=== PATIENT | female | born 2005 | race Caucasian/White ===

== ENCOUNTER 2024-10-18 02:58 | Emergency (ER) | payer OTHER, SELFPAY ==
[2024-10-18 03:00] VITALS: BP 138/85; PULSE 104; RESP 16; TEMP 36.7; O2SAT 100; BMI 23.8
--- NOTE | 2024-10-18 04:01 | EDS_ITS ---
HPI History of Present Illness Chief Complaint: Nosebleed Informant: patient and friend Narrative Narrative: Patient is a 19-year-old female with past medical history of ADHD. She reports that this evening she developed sudden onset of bleeding out of the left no stril. She reports that there was no trauma prior to the bleeding beginning. She states she has had mild congestion but denies any significant coughing episodes sneezing episodes or blowing her nose relentlessly. He denies any history of bleeding disorder or blood thinner use. She reports that she was trying at the bleeding is stopped over the past hour but was unsuccessful and therefore comes in for evaluation [facility] Medical History no medical history Home Medications ?Medication ?Instructions ?Recorded ?Last Taken ?Type dextroamphetamine-amphetamine 20 20 mg PO DAILY 10/18/24 Unknown History mg tablet (Adderall) lamotrigine 200 mg tablet 200 mg PO DAILY 10/18/24 Unknown History (Lamictal) Allergy/AdvReac Type Severity Reaction Status Date / Time No Known Allergies Allergy Verified 10/18/24 03:00 Family History unable to obtain Surgical History no surgical history Social History Smoking Status: Never smoker ROS ROS ED Constitutional Constitutional ED: Denies chills or fever(s) Eyes Eyes: Denies change in vision ENT ENT ED: Reports rhinorrhea and other Details: Positive nosebleed Cardiovascular Cardiovascular: Denies chest pain Respiratory/Chest Respiratory/Chest: Denies cough or dyspnea Gastrointestinal Gastrointestinal: Denies abdominal pain, diarrhea, nausea or vomiting Genitourinary Genitourinary ED: Denies dysuria Musculoskeletal Musculoskeletal: Denies myalgias Integumentary Denies rash Neurologic Neurologic: Denies headache(s) Hematologic/Lymphatic Hematologic/Lymphatic: Denies easy bleeding or easy bruising EXAM Physical Exam Const Vital Signs: 10/18/24 03:00 10/18/24 04:06 Temperature 98.0 F 98.0 F Temperature Source Oral Pulse Rate 104 H 95 Respiratory Rate 16 18 Blood Pressure 138/85 H 137/91 H Blood Pressure Mean 102 106 Pulse Ox 100 98 Oxygen Delivery Method Room Air Positive well nourished and well developed General Appearance ED: well developed; Negative for pallor HEENT HEENT Narrative: There is a large amount of dried blood with small amount of dark red nonpulsatile blood in the left nostril consistent with anterior epistaxis. There is trace overflow bleeding into the right nostril and dried blood in the posterior pharynx without active bleeding in the throat noted. No septal perforation Eyes PERRL and EOMs intact bilaterally Neck supple Resp normal respiratory effort and clear to auscultation bilaterally Cardio regular rate and regular rhythm Extremity normal to inspection Neuro oriented x3, CN's II-XII intact bilaterally and no sensory deficits noted Sensorium / Orientation: alert Motor Exam: strength 5/5 throughout Psych mental status grossly normal Skin no rashes or lesions noted General Skin Exam: Negative for jaundice or pallor MDM MDM MDM Narrative Medical decision making narrative: Patient arrived to the ER with stable vitals and reported sudden onset of bleeding of the left nostril. There have been no report or signs of trauma so my concern that this developed secondary to a nasal bone fracture more low and I felt no need for a CT scan. On exam there is no signs of septal hematoma and the blood is slow intermittent use going against a posterior nosebleed from the sphenopalatine artery so there is no need for emergent ENT referral. The patient denies any history of bleeding disorder or blood thinner use and is bleeding is only been going on for the last hour I have low concern for anemia or thrombocytopenia and do not feel the need for laboratory studies. The patient had a 5.5 cm rapid Rhino nasal packing placed in the left nostril. This was inflated to 4 cm of air. The patient was watched for 30 minutes and there was no bleeding out of the left nostril no overflow bleeding into the right and no bleeding in the posterior pharynx indicating that the nasal packing had performed cauterization of the wound. Therefore with stabilization of the anterior nosebleed there is no need for further workup and patient is otherwise safe for discharge History & Record Review Discussion w/independent historian: Patient and Friend Discharge Plan Triage Chief Complaint: Nosebleed ED Provider: Donaldo Tony Dx/Rx/DC Orders Clinical Impression: Anterior epistaxis, ADHD Instructions: ED Epistaxis (Adult), ED Removable Nasal Packing Anterior Prescriptions: No Action lamotrigine [Lamictal] 200 mg tablet 200 mg PO DAILY dextroamphetamine-amphetamine [Adderall] 20 mg tablet 20 mg PO DAILY Primary Care Provider: Care Physician,No Primary Referrals: Woody Sarmiento MD [Med Staff - Courtesy Staff] - Care Physician,No Primary [Primary Care Provider] - Activity Restrictions/Additional Instructions: Please follow-up with ENT for repeat evaluation regarding her nosebleed. If you develop bleeding out of the right side or bleeding down the back of your throat despite the packing or have any further concerns please return to the ER for repeat evaluation. It is still okay to take Tylenol and/or Motrin for pain control if needed Print Language: Hungarian Disposition Disposition: Home, Self Care Discharge Date/Time: 10/18/24 04:08
[2024-10-18 04:06] VITALS: BP 137/91; PULSE 95; RESP 18; TEMP 36.7; O2SAT 98
== END 2024-10-18 04:08 | disposition home or self-care (01) ==
PROVIDERS: Emergency Provider Emergency Medicine; Visit Provider Emergency Medicine
DX: R04.0 Epistaxis (principal); F90.9 Attention-deficit hyperactivity disorder, unspecified type; Z79.899 Other long term (current) drug therapy
CPT/HCPCS: 30901; 99282